=== PATIENT | male | born 1990 | race Caucasian/White ===

== ENCOUNTER 2017-02-01 02:30 | Emergency (ER) | payer OTHER ==
[2017-02-01 03:42] VITALS: BP 123/56
== END 2017-02-01 03:42 | disposition home or self-care (01) ==
LOC: ED 02:30
DX: J45.901 Unspecified asthma with (acute) exacerbation (principal)
CPT/HCPCS: J7613; J7644

== ENCOUNTER 2017-05-29 11:17 | Emergency (ER) | payer OTHER ==
[2017-05-29 12:06] VITALS: BP 128/71
== END 2017-05-29 12:06 | disposition home or self-care (01) ==
LOC: ED 11:17
DX: J45.901 Unspecified asthma with (acute) exacerbation (principal); Z71.6 Tobacco abuse counseling; Z91.09 Other allergy status, other than to drugs and biological substances
CPT/HCPCS: 99406; J7512; J7613